=== PATIENT | female | born 1950 | race African-American/Black ===

== ENCOUNTER 2018-12-16 10:38 | Emergency (ER) | payer MEDICARE ==
[2018-12-16 11:31] VITALS: BP 116/76
--- NOTE | 2018-12-16 12:54 | Emergency Department Report ---
ED General Adult HPI - General Chief complaint: Hyperglycemia Stated complaint: HIGH GLUCOSE Time Seen by Provider: 12/16/18 12:35 Source: family Mode of arrival: Ambulatory Limitations: Language Barrier - History of Present Illness Initial comments: 68-year-old female with history of diabetes presents to ED with hyperglycemia. Patient went to the doctor's office this morning for routine checkup, fingerstick was done and showed glucose 401, so patient was sent to the ER. Patient denies nausea, vomiting, fever, abdominal pain, chest pain, shortness of breath. Fingerstick here in ED is 269. -: This morning Improves with: none Worsens with: none Associated Symptoms: denies other symptoms Treatments Prior to Arrival: none ED Review of Systems ROS: Stated complaint: HIGH GLUCOSE Other details as noted in HPI Comment: All other systems reviewed and negative Constitutional: denies: chills, fever Respiratory: denies: cough, shortness of breath Cardiovascular: denies: chest pain Gastrointestinal: denies: abdominal pain, nausea, vomiting Neurological: denies: headache ED Past Medical Hx - Past Medical History Hx Diabetes: Yes Hx Arthritis: Yes - Surgical History Hx Cholecystectomy: Yes Hx Appendectomy: Yes - Social History Smoking Status: Never Smoker Substance Use Type: None ED Physical Exam - General Limitations: Language Barrier General appearance: alert, in no apparent distress - Head Head exam: Present: atraumatic, normocephalic - Eye Eye exam: Present: normal appearance - ENT ENT exam: Present: mucous membranes moist - Neck Neck exam: Present: normal inspection - Respiratory Respiratory exam: Present: normal lung sounds bilaterally. Absent: respiratory distress - Cardiovascular Cardiovascular Exam: Present: regular rate, normal rhythm - GI/Abdominal GI/Abdominal exam: Present: soft. Absent: distended - Extremities Exam Extremities exam: Present: normal inspection - Neurological Exam Neurological exam: Present: alert, oriented X3, CN II-XII intact. Absent: motor sensory deficit - Psychiatric Psychiatric exam: Present: normal affect, normal mood - Skin Skin exam: Present: warm, dry, intact, normal color ED Course Vital Signs 12/16/18 11:11 Temperature 98.2 F Pulse Rate 88 Respiratory 18 Rate Blood Pressure 116/76 O2 Sat by Pulse 96 Oximetry ED Medical Decision Making - Medical Decision Making - accucheck 260 - likely not in DKA, pt has no other symptoms, vitals normal - will d/c home, PCP follow-up advised - Differential Diagnosis DKA, hyperglycemia Critical care attestation.: If time is entered above; I have spent that time in minutes in the direct care of this critically ill patient, excluding procedure time. ED Disposition Clinical Impression: Hyperglycemia Disposition: DC-01 TO HOME OR SELFCARE Is pt being admited?: No Condition: Stable Instructions: Diabetic Hyperglycemia (ED) Referrals: AILEEN BRITT MD [Primary Care Provider] - 3-5 Days Time of Disposition: 12:53
== END 2018-12-16 13:06 | disposition home or self-care (01) ==
LOC: ED 10:38
DX: E11.65 Type 2 diabetes mellitus with hyperglycemia (principal); M19.90 Unspecified osteoarthritis, unspecified site; Z90.49 Acquired absence of other specified parts of digestive tract
CPT/HCPCS: 82962; 99282